=== PATIENT | female | born 1975 | race Caucasian/White ===

== ENCOUNTER 2017-05-20 16:48 | Emergency (ER) | payer SELFPAY ==
[~2017-05-20 16:48] MED LIST: ACE3 PO; ADV250/50 INH; ALB0.5 INH; CIT20 PO; COM PO; ESCI20TA38 PO; IBU800 PO; LEVO50TA80 PO; LIO25 PO; MET2 PO; METO-259 PO; MULT-820 PO; PER PO; SUMA100T32 PO; ZOLP-350 PO
[2017-05-20] MEDS ORDERED: RIZA10TA PO (16:58)
[2017-05-20] MEDS ORDERED: PARO-243 PO (16:58)
--- NOTE | 2017-05-20 16:58 | ER Report ---
History and Physical Time Seen By MD: 16:57 Hx. of Stated Complaint: Patient complains of chest pain for 2 days and worsened when her left arm went numb today HPI/ROS CHIEF COMPLAINT: Chest pain HISTORY OF PRESENT ILLNESS: 41-year-old female patient presents to emergency room with complaint of chest pain. Patient states this been going on for the last 2 days. She states it started while she was doing pushups. She states that the pain worsened today which caused her to become concerned. Patient states that she had some numbness and tingling to her left arm. She states that also made her more nervous. She denies having any nausea, vomiting or diarrhea. Patient states she is not taking any medication for this for last few days. She states she's had a history of ST prolongation. REVIEW OF SYSTEMS: Respiratory: No cough, no dyspnea. Cardiovascular: As noted above Gastrointestinal: No vomiting, no abdominal pain. Musculoskeletal: No back pain. Allergies: Coded Allergies: No Known Drug Allergies (Verified , 05/20/17) Uncoded Allergies: ENVIRONMENTAL ALLERGIES (Allergy, Intermediate, 03/03/09) Home Meds Active Scripts Cyclobenzaprine Hcl (CYCLOBENZAPRINE HCL) 10 Mg Tablet, 5-10 MG PO TID Y for MUSCLE SPASMS, #9 TAB Prov:AMANDA JACKSON [facility] 05/20/17 Hydrocodone Bit/Acetaminophen (NORCO 5-325 TABLET) 1 Each Tablet, 1 EACH PO Q4- 6H Y for PAIN, #12 TAB Prov:AMANDA JACKSON [facility] 05/20/17 Ketorolac Tromethamine (KETOROLAC TROMETHAMINE) 10 Mg Tab, 10 MG PO Q6H, #20 TAB Prov:AMANDA JACKSON [facility] 05/20/17 Reported Medications Rizatriptan Benzoate (MAXALT) 10 Mg Tablet, 10 MG PO 05/20/17 Paroxetine Hcl (PAXIL) 20 Mg Tablet, 5 MG PO QDAY, TAB 05/20/17 Multivitamins (Multivitamin) 1 Tab Tablet, 1 TAB PO DAILY, 0 Refills 03/03/09 Discontinued Reported Medications Oxycodone/Acetaminophen (OXYCODONE/ACETAMINOPHEN 5MG/325 MG) 5 Mg/325 Mg Tab, 1 - 2 TAB PO Q4-6H Y, #30 0 Refills 03/05/09 Zolpidem Tartrate (Ambien) 10 Mg Tablet, 10 MG PO QHS PRN, 0 Refills 03/03/09 Liothyronine Sodium (Cytomel) 25 Mcg Tab, 25 MCG PO QDAY, 0 Refills 03/03/09 Levothyroxine Sodium (Levothyroxine Sodium) 50 Mcg Tablet, 50 MCG PO DAILY, 0 Refills 03/03/09 Sumatriptan Succinate (Imitrex) 100 Mg Tablet, 100 MG PO PRN, 0 Refills 03/03/09 Citalopram Hydrobromide (Celexa) 20 Mg Tab, 40 MG PO QDAY, 0 Refills 03/03/09 Lamivudine/Zidovudine (Combivir) 1 Ea Tab, 1 EA PO BID, 0 Refills 02/17/09 Albuterol Sulfate (Albuterol Inh Conc) 2.5 Mg/0.5 Ml Nebu, 0 INH PRN, 0 Refills DILUTE BEFORE USING 02/17/09 Salmeterol Xinaf/Fluticasone (Advair 250/50 Diskus) 250 Mcg/50 Mcg Inh, 1 - 2 PUFF INH BID, 0 Refills 1 PUFF 03/03/09 Past Medical/Surgical History Patient has a past medical history of migraines, asthma, pneumonia, inguinal hernia, alcohol use. Patient has a surgical history of D&C. Reviewed Nurses Notes: Yes Hx Substance Use Disorder: No Hx Alcohol Use: Yes (socially) Constitutional Vital Sign - Last 24 Hours 05/20/17 05/20/17 05/20/17 05/20/17 16:48 16:51 16:51 17:00 Temp 97.8 Pulse ??? 87 Resp 16 B/P (MAP) 163/81 163/81 (108) 135/106 (116) Pulse Ox 93 O2 Delivery Room Air 05/20/17 05/20/17 05/20/17 05/20/17 17:03 17:18 17:30 17:33 Pulse 93 84 ??? Resp 22 12 B/P (MAP) 136/97 (110) Pulse Ox 95 97 05/20/17 05/20/17 17:48 18:03 Pulse 71 ??? Resp 18 Pulse Ox 90 Intake and Output 05/20/17 05/20/17 05/21/17 15:00 23:00 07:00 Intake Total 700 ml Balance 700 ml Physical Exam General Appearance: The patient is alert, has no immediate need for airway protection and no current signs of toxicity. Patient appears anxious ENT: Tympanic membranes are pearly-andersen, auditory canals are patent, mucous membranes are moist. Respiratory: Chest is tender along the left sternal border, lungs are clear to auscultation. Cardiac: regular rate and rhythm Gastrointestinal: Abdomen is soft and non tender, no masses, bowel sounds normal. Musculoskeletal: Neck: Neck is supple and non tender. Extremities have full range of motion and are non tender. Skin: No rashes or lesions. DIFFERENTIAL DIAGNOSIS: After history and physical exam differential diagnosis was considered for chest pain including but not limited to myocardial ischemia, pericarditis pulmonary embolus, chest wall pain, pleural inflammation and pulmonary infectious causes. Medical Decision Making Data Points Result Diagram: 05/20/177 05/20/177 Laboratory Hematology Test 05/20/17 16:57 Red Blood Count 4.41 M/uL (4.17-5.56) Mean Corpuscular Volume 97.0 fL (80.0-96.0) Mean Corpuscular Hemoglobin 34.7 pg (26.0-33.0) Mean Corpuscular Hemoglobin Concent 35.8 g/dL (32.0-36.0) Red Cell Distribution Width 13.5 % (11.5-14.5) Mean Platelet Volume 7.4 fL (7.2-11.1) Neutrophils (%) (Auto) 70.0 % (39.4-72.5) Lymphocytes (%) (Auto) 20.2 % (17.6-49.6) Monocytes (%) (Auto) 7.3 % (4.1-12.4) Eosinophils (%) (Auto) 1.4 % (0.4-6.7) Basophils (%) (Auto) 1.1 % (0.3-1.4) Nucleated RBC Relative Count (auto) 0.0 /100WBC Neutrophils # (Auto) 5.0 K/uL (2.0-7.4) Lymphocytes # (Auto) 1.4 K/uL (1.3-3.6) Monocytes # (Auto) 0.5 K/uL (0.3-1.0) Eosinophils # (Auto) 0.1 K/uL (0.0-0.5) Basophils # (Auto) 0.1 K/uL (0.0-0.1) Nucleated RBC Absolute Count (auto) 0.00 K/uL Sodium Level 143 mmol/L (137-145) Potassium Level 3.3 mmol/L (3.5-5.0) Chloride Level 103 mmol/L (98-107) Carbon Dioxide Level 24 mmol/L (22-31) Blood Urea Nitrogen 7 mg/dl (7-18) Creatinine 0.70 mg/dl (0.52-1.04) Glomerular Filtration Rate Calc > 60.0 Random Glucose 90 mg/dl (75-110) Calcium Level 8.9 mg/dl (8.4-10.2) Total Bilirubin 0.6 mg/dl (0.2-1.3) Aspartate Amino Transf (AST/SGOT) 43 U/L (0-35) Alanine Aminotransferase (ALT/SGPT) 44 U/L (0-56) Alkaline Phosphatase 74 U/L (0-126) Troponin I < 0.012 ng/ml Total Protein 6.8 gm/dl (6.3-8.2) Albumin 4.1 g/dl (3.5-5.0) Chemistry Test 05/20/17 16:57 White Blood Count 7.1 k/uL (4.5-11.0) Red Blood Count 4.41 M/uL (4.17-5.56) Hemoglobin 15.3 g/dL (12.0-16.0) Hematocrit 42.8 % (34.0-47.0) Mean Corpuscular Volume 97.0 fL (80.0-96.0) Mean Corpuscular Hemoglobin 34.7 pg (26.0-33.0) Mean Corpuscular Hemoglobin Concent 35.8 g/dL (32.0-36.0) Red Cell Distribution Width 13.5 % (11.5-14.5) Platelet Count 244 K/uL (150-450) Mean Platelet Volume 7.4 fL (7.2-11.1) Neutrophils (%) (Auto) 70.0 % (39.4-72.5) Lymphocytes (%) (Auto) 20.2 % (17.6-49.6) Monocytes (%) (Auto) 7.3 % (4.1-12.4) Eosinophils (%) (Auto) 1.4 % (0.4-6.7) Basophils (%) (Auto) 1.1 % (0.3-1.4) Nucleated RBC Relative Count (auto) 0.0 /100WBC Neutrophils # (Auto) 5.0 K/uL (2.0-7.4) Lymphocytes # (Auto) 1.4 K/uL (1.3-3.6) Monocytes # (Auto) 0.5 K/uL (0.3-1.0) Eosinophils # (Auto) 0.1 K/uL (0.0-0.5) Basophils # (Auto) 0.1 K/uL (0.0-0.1) Nucleated RBC Absolute Count (auto) 0.00 K/uL Glomerular Filtration Rate Calc > 60.0 Calcium Level 8.9 mg/dl (8.4-10.2) Total Bilirubin 0.6 mg/dl (0.2-1.3) Aspartate Amino Transf (AST/SGOT) 43 U/L (0-35) Alanine Aminotransferase (ALT/SGPT) 44 U/L (0-56) Alkaline Phosphatase 74 U/L (0-126) Troponin I < 0.012 ng/ml Total Protein 6.8 gm/dl (6.3-8.2) Albumin 4.1 g/dl (3.5-5.0) EKG/Imaging EKG Interpretation 12 lead EKG: Rhythm: normal sinus rhythm with a ventricular rate of 91 bpm [place]: normal QRS: normal ST segments: normal Imaging Examination: CHEST PA AND LAT Comparison: None. History: Chest pain. Findings: Cardiac and hilar contour size is within normal limits. No consolidation, nodule, or peribronchial inflammation. No pneumothorax, edema, or effusion. Visualized bowel gas pattern is unremarkable. Osseous structures are intact. IMPRESSION: Negative chest. Report Dictated By: German Maurer MD at 05/20/2017 5:40 PM Report E-Signed By: German Maurer MD at 05/20/2017 5:42 PM ED Course/Re-evaluation ED Course Patient was admitted to exam room, history and physical were obtained. Differential diagnoses were considered. On examination patient has tenderness to the ribs adjacent to the left sternum. A CBC, CMP, troponin, EKG, chest x- ray were done. Lab results were unremarkable, the troponin was negative. EKG showed a normal sinus rhythm, chest x-ray was negative. I discussed the findings with the patient and her mother. I believe that we are looking at a muscle strain secondary to doing pushups. Patient received a dose of morphine originally here in the emergency room, she didn't have much improvement in her pain. We then gave her 30 mg of Toradol and patient states she did have some improvement. Due to the significant amounts of discomfort go ahead and give her limited supply of hydrocodone. We will also treat her with Toradol 10 mg 4 times a day for the next 5 days. I discussed this with the patient and her mother they verbalized understanding and agreement with plan. The mother did ask if possible the patient had a blood clot. I discussed that with her vital signs (blood pressure 136/97, heart rate 71) that I did not believe that a pulmonary embolism would be likely. Decision to Disposition Date: May 20, 2017 Decision to Disposition Time: 17:58 Depart Departure Latest Vital Signs Vital Signs Date Time Temp Pulse Resp B/P (MAP) Pulse Ox O2 Delivery O2 Flow Rate FiO2 05/20/17 18:03 ??? 18 05/20/17 17:48 90 05/20/17 17:30 136/97 (110) 05/20/17 16:51 97.8 Room Air Impression: Primary Impression: Chest pain Condition: Improved Disposition: HOME OR SELF-CARE New Scripts Cyclobenzaprine Hcl (CYCLOBENZAPRINE HCL) 10 Mg Tablet 5-10 MG PO TID Y for MUSCLE SPASMS, #9 TAB Prov: AMANDA JACKSON 05/20/17 Hydrocodone Bit/Acetaminophen (NORCO 5-325 TABLET) 1 Each Tablet 1 EACH PO Q4-6H Y for PAIN, #12 TAB Prov: AMANDA JACKSON 05/20/17 Ketorolac Tromethamine (KETOROLAC TROMETHAMINE) 10 Mg Tab 10 MG PO Q6H, #20 TAB Prov: AMANDA JACKSON 05/20/17 Patient Instructions: Chest Pain (ED) Additional Instructions: Increase fluid intake. Get plenty of rest. Ice the ribs on the left side of the sternum. No Tylenol or Ibuprofen while taking the prescriptions. Limit activity by pain. Return to the ER if condition worsens. Follow up with your primary care provider in the next week. Problem Qualifiers Primary Impression: Chest pain Chest pain type: other chest pain Qualified Codes: R07.89 - Other chest pain AMANDA JACKSON May 20, 2017 16:58
[2017-05-20] MEDS ORDERED: NS(*) 0.9% 1000 ML BAG 1,000 ML IV ONE (17:03)
[2017-05-20] MEDS ORDERED: MORPHINE 2 MG/ML SYR IVP ONE (17:05)
[2017-05-20] MEDS ORDERED: ASPIRIN 81 MG CHEW PO ONE (17:05)
[2017-05-20 17:08] LABS: PLATELET COUNT, AUTOMATED 244 K/uL (150-450)
[2017-05-20 17:30] VITALS: BP 136/97
--- NOTE | 2017-05-20 17:45 | RADIOLOGY IMAGING REPORT ---
FACILITY: [facility] [place] PATIENT NAME: Juan Manuel Brand : 1975 MR: [id number] V: [id number] EXAM DATE: ORDERING PHYSICIAN: AMANDA JACKSON TECHNOLOGIST: Location: [facility] Patient: Juan Manuel Brand : 1975 Visit/Account:[id number] Date of Sevice: 05/20/2017 Examination: CHEST PA AND LAT Comparison: None. History: Chest pain. Findings: Cardiac and hilar contour size is within normal limits. No consolidation, nodule, or peribr onchial inflammation. No pneumothorax, edema, or effusion. Visualized bowel gas pattern is unremarkab le. Osseous structures are intact. IMPRESSION: Negative chest. Report Dictated By: German Maurer MD at 05/20/2017 5:40 PM Report E-Signed By: German Maurer MD at 05/20/2017 5:42 PM WSN:[id number]
[2017-05-20] MEDS ORDERED: HYDR-4309 PO (17:55)
[2017-05-20] MEDS ORDERED: KETOROLAC 30 MG/ML VIAL IVP ONE (17:55)
[2017-05-20] MEDS ORDERED: KET10 PO (17:55)
--- NOTE | 2017-05-20 18:02 | EKG ---
FACILITY: [facility] PATIENT NAME: MACARIO GARCIA : [id number] MR: [id number] V: [id number] EXAM DATE: ORDERING PHYSICIAN: AMANDA JACKSON TECHNOLOGIST: ROSEMARIE Test Reason : ABD PAIN Blood Pressure : / mmHG Vent. Rate : 091 BPM Atrial Rate : 091 BPM P-R Int : 130 ms QRS Dur : 088 ms QT Int : 422 ms P-R-T Axes : 059 073 062 degrees QTc Int : 519 ms Sinus rhythm No acute appearing ST-T findings Prolonged QT Abnormal ECG No previous ECGs available Confirmed by DEVIN MAGANA ([id number]) on 05/20/2017 6:44:57 PM Referred By: MANUEL Confirmed By:DEVIN MAGANA
[2017-05-20] MEDS ORDERED: KETOROLAC TROM 10 MG TAB TH PO ONE (18:20)
[2017-05-20] MEDS ORDERED: ACET/HYDROC 5/325MG TH ER ONLY 2 TAB/BOTTLE PO ONE (18:20)
[2017-05-20] MEDS ORDERED: CYCLOBENZAPRINE HCL 10 MG TH PO ONE (18:35)
[2017-05-20] MEDS ORDERED: CYCL10TA29 PO (18:36)
== END 2017-05-20 18:42 | disposition home or self-care (01) ==
LOC: ER 17:02
DX: R07.89 Other chest pain (principal)
CPT/HCPCS: 71046; 84484; 85025; 93005; 96361; 96374; 96375; 99284; J1885; J2270; J7030; 82040; 82247; 82310; 82374; 82435; 82565; 82947; 84075; 84132; 84155; 84295; 84450; 84460; 84520

== ENCOUNTER 2017-09-17 12:18 | Emergency (ER) | payer SELFPAY ==
[~2017-09-17 12:18] MED LIST changes: +CYCL10TA29 PO; +HYDR-4309 PO; +KET10 PO; +PARO-243 PO; +RIZA10TA PO
[2017-09-17] MEDS ORDERED: AMPH20TA18 PO (12:30)
--- NOTE | 2017-09-17 12:32 | ER Report ---
History and Physical Time Seen By MD: 12:28 Hx. of Stated Complaint: PATIENT IS REPORTING BI-LATERAL FLANK PAIN SINCE YESTERDAY HPI/ROS Source of History: The client Chief Concern: low back pain History of Present Illnesses: 41-year-old patient reports starting to feel poorly Sunday in which she has lower back pain, chills, night sweats, an occipital headache, constipation and nausea. States, she typically does not "throw-up" and has not had any emesis. Reports having a small bowel movement Sunday Morning. States she has had a tubal ligation but no other abdominal surgeries. Reports being sexually active and not using condoms 100% of the time. Reports feeling as if she has not voided completely with urination. Has had UTIs in the past, reporting her last UTI was in 2011. The lower back pain is bilateral, constant, and made worse when she takes a deep breath. The symptoms have been unrelieved with ibuprofen. Her last dose of ibuprofen was last night at 20:00. No other treatments tried. Constitutional: Reports malaise, chills, and night sweats. HEENT: Reports headache. No vision changes. No sinus congestion. No sore throat , or cough. Cardiovascular: Denies chest pain, palpitations, or diaphoresis. Respiratory: Denies cough, shortness of breath, or wheezing. Gastrointestinal System: Reports nausea. Denies vomiting, hematochezia, or black stools. Genitourinary: Reports lower back pain, denies hematuria, reports painful voiding and urinary hesitancy. Musculoskeletal: Denies muscular pain, no joint pain. Allergic/Immunologic: Denies joint pain or weakness. Allergies: Coded Allergies: No Known Drug Allergies (Verified , 05/20/17) Uncoded Allergies: ENVIRONMENTAL ALLERGIES (Allergy, Intermediate, 03/03/09) Home Meds Active Scripts Ciprofloxacin Hcl (CIPROFLOXACIN HCL) 500 Mg Tablet, 500 MG PO Q12H for 7 Days, #14 TAB Prov:AMANDA JACKSON 09/17/17 Reported Medications Amphet Asp/Amphet/D-Amphet (ADDERALL 20 MG TABLET) 20 Mg Tablet, 20 MG PO BID 09/17/17 Discontinued Reported Medications Rizatriptan Benzoate (MAXALT) 10 Mg Tablet, 10 MG PO 05/20/17 Paroxetine Hcl (PAXIL) 20 Mg Tablet, 5 MG PO QDAY, TAB 3/25/18 Multivitamins (Multivitamin) 1 Tab Tablet, 1 TAB PO DAILY, 0 Refills 03/03/09 Discontinued Scripts Cyclobenzaprine Hcl (CYCLOBENZAPRINE HCL) 10 Mg Tablet, 5-10 MG PO TID Y for MUSCLE SPASMS, #9 TAB Prov:AMANDA JACKSON [facility] 05/20/17 Hydrocodone Bit/Acetaminophen (NORCO 5-325 TABLET) 1 Each Tablet, 1 EACH PO Q4- 6H Y for PAIN, #12 TAB Prov:AMANDA JACKSON [facility] 05/20/17 Ketorolac Tromethamine (KETOROLAC TROMETHAMINE) 10 Mg Tab, 10 MG PO Q6H, #20 TAB Prov:AMANDA JACKSON [facility] 05/20/17 Past Medical/Surgical History Migraines, asthma, pneumonia, left inguinal hernia, Reviewed Nurses Notes: Yes Hx Substance Use Disorder: No Hx Alcohol Use: Yes (socially) Constitutional Vital Sign - Last 24 Hours 09/17/17 09/17/17 09/17/17 09/17/17 12:22 12:24 12:30 12:48 Temp 99.8 Pulse 113 106 Resp 20 B/P (MAP) 153/109 153/109 (124) 143/94 (110) Pulse Ox 92 O2 Delivery Room Air 09/17/17 09/17/17 09/17/17 09/17/17 13:00 13:18 13:30 13:48 Pulse 98 91 B/P (MAP) 122/87 (99) 131/88 (102) Pulse Ox 94 92 09/17/17 13:59 B/P (MAP) 133/85 (101) Physical Exam Eyes. Non-injected. No exudates. PERRLA. Corneas grossly intact. Extra ocular movements intact, peripheral vision grossly intact. ENMT. Ears- symmetrical auricles with smooth skin; auricles aligned with the outer canthus of eye. TMs clear. Nose - symmetric, straight, and uniform in color. No nasal flaring. Mouth - mucosa pink and moist. Throat no hoarseness , uvula midline. Neck. Neck supple, erect, trachea midline, no masses. Thyroid no enlargement or nodules, non-tender. Lymph nodes- cervical chain, pre-and post-auricular, occipital, mandibular, and submental lymph nodes non-tender and non-palpable. BL parotid glands non-tender and non-palpable. Cardiovascular. 2+ radial BL equal. PMI - left midclavicular at the 5th ICS. Aortic, pulmonic, tricuspid, and mitral areas - clear S1/S2; no murmur, no S3, or S4. Respiratory. Respiratory Excursion BL equal and symmetrical; no presence of lag; quiet, rhythmic and effortless. No retractions. BL clear and equal. GI: abdomen round, non-distended, BS normoactive x 4 quadrants, tender, no guarding, no CVA tenderness. : normal external genitalia, normal vaginal mucosa, cervix pink, vaginal vault with milky non-odorous discharged. Pelvic exam was done with a surveillance inspector. Lymphatic: Cervical chain, pre and post auricular, occipital, mandibular, and submental lymph nodes non tender and non-palpable. Musculoskeletal: Muscles symmetric BL, active motion of all extremities. Neurologic: Alert. Language clear. Cranial nerves grossly intact. Sensation grossly intact. Differential diagnoses: UTI, pyelonephritis, STI, kidney stones Medical Decision Making Data Points Result Diagram: 09/17/17 1240 09/17/17 1240 Laboratory Hematology Test 09/17/17 12:40 09/17/17 12:47 Red Blood Count 4.09 M/uL (4.17-5.56) Mean Corpuscular Volume 100.5 fL (80.0-96.0) Mean Corpuscular Hemoglobin 34.8 pg (26.0-33.0) Mean Corpuscular Hemoglobin Concent 34.7 g/dL (32.0-36.0) Red Cell Distribution Width 13.1 % (11.5-14.5) Mean Platelet Volume 8.1 fL (7.2-11.1) Neutrophils (%) (Auto) 93.0 % (39.4-72.5) Lymphocytes (%) (Auto) 2.3 % (17.6-49.6) Monocytes (%) (Auto) 3.6 % (4.1-12.4) Eosinophils (%) (Auto) 0.3 % (0.4-6.7) Basophils (%) (Auto) 0.8 % (0.3-1.4) Nucleated RBC Relative Count (auto) 0.0 /100WBC Neutrophils # (Auto) 10.6 K/uL (2.0-7.4) Lymphocytes # (Auto) 0.3 K/uL (1.3-3.6) Monocytes # (Auto) 0.4 K/uL (0.3-1.0) Eosinophils # (Auto) 0.0 K/uL (0.0-0.5) Basophils # (Auto) 0.1 K/uL (0.0-0.1) Nucleated RBC Absolute Count (auto) 0.00 K/uL Sodium Level 133 mmol/L (137-145) Potassium Level 3.7 mmol/L (3.5-5.0) Chloride Level 100 mmol/L (98-107) Carbon Dioxide Level 25 mmol/L (22-31) Blood Urea Nitrogen 9 mg/dl (7-18) Creatinine 0.70 mg/dl (0.52-1.04) Glomerular Filtration Rate Calc > 60.0 Random Glucose 118 mg/dl (75-110) Calcium Level 8.7 mg/dl (8.4-10.2) Total Bilirubin 1.5 mg/dl (0.2-1.3) Aspartate Amino Transf (AST/SGOT) 86 U/L (0-35) Alanine Aminotransferase (ALT/SGPT) 78 U/L (0-56) Alkaline Phosphatase 113 U/L (0-126) Total Protein 6.7 g/dl (6.3-8.2) Albumin 4.1 g/dl (3.5-5.0) Human Chorionic Gonadotropin, Qual Negative (NEGATIVE) Urine Color Yellow Urine Clarity Cloudy Urine pH 7.0 pH (4.8-9.5) Urine Specific [place] 1.011 Urine Protein 30 mg/dL (NEGATIVE) Urine Glucose (UA) Negative mg/dL (NEGATIVE) Urine Ketones Negative mg/dL (NEGATIVE) Urine Blood Small (NEGATIVE) Urine Nitrite Positive (NEGATIVE) Urine Bilirubin Negative (NEGATIVE) Urine Urobilinogen 4.0 mg/dL (0.2-1.9) Urine Leukocyte Esterase Moderate (NEGATIVE) Urine RBC 3 /HPF (0-2/HPF) Urine WBC 140 /HPF (0-5/HPF) Urine WBC Clumps Few /HPF Urine Squamous Epithelial Cells Many /LPF (</=FEW) Urine Transitional Epithelial Cells Many /LPF (NONE-FEW) Urine Bacteria Moderate /HPF (NONE-FEW) Urine Mucus None /HPF (NONE-FEW) Chemistry Test 09/17/17 12:40 09/17/17 12:47 White Blood Count 11.4 k/uL (4.5-11.0) Red Blood Count 4.09 M/uL (4.17-5.56) Hemoglobin 14.2 g/dL (12.0-16.0) Hematocrit 41.0 % (34.0-47.0) Mean Corpuscular Volume 100.5 fL (80.0-96.0) Mean Corpuscular Hemoglobin 34.8 pg (26.0-33.0) Mean Corpuscular Hemoglobin Concent 34.7 g/dL (32.0-36.0) Red Cell Distribution Width 13.1 % (11.5-14.5) Platelet Count 217 K/uL (150-450) Mean Platelet Volume 8.1 fL (7.2-11.1) Neutrophils (%) (Auto) 93.0 % (39.4-72.5) Lymphocytes (%) (Auto) 2.3 % (17.6-49.6) Monocytes (%) (Auto) 3.6 % (4.1-12.4) Eosinophils (%) (Auto) 0.3 % (0.4-6.7) Basophils (%) (Auto) 0.8 % (0.3-1.4) Nucleated RBC Relative Count (auto) 0.0 /100WBC Neutrophils # (Auto) 10.6 K/uL (2.0-7.4) Lymphocytes # (Auto) 0.3 K/uL (1.3-3.6) Monocytes # (Auto) 0.4 K/uL (0.3-1.0) Eosinophils # (Auto) 0.0 K/uL (0.0-0.5) Basophils # (Auto) 0.1 K/uL (0.0-0.1) Nucleated RBC Absolute Count (auto) 0.00 K/uL Glomerular Filtration Rate Calc > 60.0 Calcium Level 8.7 mg/dl (8.4-10.2) Total Bilirubin 1.5 mg/dl (0.2-1.3) Aspartate Amino Transf (AST/SGOT) 86 U/L (0-35) Alanine Aminotransferase (ALT/SGPT) 78 U/L (0-56) Alkaline Phosphatase 113 U/L (0-126) Total Protein 6.7 g/dl (6.3-8.2) Albumin 4.1 g/dl (3.5-5.0) Human Chorionic Gonadotropin, Qual Negative (NEGATIVE) Urine Color Yellow Urine Clarity Cloudy Urine pH 7.0 pH (4.8-9.5) Urine Specific [place] 1.011 Urine Protein 30 mg/dL (NEGATIVE) Urine Glucose (UA) Negative mg/dL (NEGATIVE) Urine Ketones Negative mg/dL (NEGATIVE) Urine Blood Small (NEGATIVE) Urine Nitrite Positive (NEGATIVE) Urine Bilirubin Negative (NEGATIVE) Urine Urobilinogen 4.0 mg/dL (0.2-1.9) Urine Leukocyte Esterase Moderate (NEGATIVE) Urine RBC 3 /HPF (0-2/HPF) Urine WBC 140 /HPF (0-5/HPF) Urine WBC Clumps Few /HPF Urine Squamous Epithelial Cells Many /LPF (</=FEW) Urine Transitional Epithelial Cells Many /LPF (NONE-FEW) Urine Bacteria Moderate /HPF (NONE-FEW) Urine Mucus None /HPF (NONE-FEW) Urinalysis Test 09/17/17 12:47 Urine Color Yellow Urine Clarity Cloudy Urine pH 7.0 pH (4.8-9.5) Urine Specific [place] 1.011 Urine Protein 30 mg/dL (NEGATIVE) Urine Glucose (UA) Negative mg/dL (NEGATIVE) Urine Ketones Negative mg/dL (NEGATIVE) Urine Blood Small (NEGATIVE) Urine Nitrite Positive (NEGATIVE) Urine Bilirubin Negative (NEGATIVE) Urine Urobilinogen 4.0 mg/dL (0.2-1.9) Urine Leukocyte Esterase Moderate (NEGATIVE) Urine RBC 3 /HPF (0-2/HPF) Urine WBC 140 /HPF (0-5/HPF) Urine WBC Clumps Few /HPF Urine Squamous Epithelial Cells Many /LPF (</=FEW) Urine Transitional Epithelial Cells Many /LPF (NONE-FEW) Urine Bacteria Moderate /HPF (NONE-FEW) Urine Mucus None /HPF (NONE-FEW) ED Course/Re-evaluation ED Course 41-year-old patient presents to the Emergency Department with bilaterally lower back pain that radiates to her abdomen and includes urinary hesitancy. Physical Examination obtained. Differential diagnoses considered and shared with the patient. CBC, CMP, HcG, UA, gonorrhea and chlamydia cultures obtained. The UA, elevated WBC, alongside patient history and physical examination indicates UTI that has progressed to pyelonephritis. The patient will be sent home on Cipro and encouraged to return to the emergency department if her condition worsens or if she does not see improvement in symptoms. The patient states agreement and has no further questions at this time. The urine sample will be sent for culture to ensure effective antibiotic treatment. Decision to Disposition Date: Sep 17, 2017 Decision to Disposition Time: 14:00 Depart Departure Latest Vital Signs Vital Signs Date Time Temp Pulse Resp B/P (MAP) Pulse Ox O2 Delivery O2 Flow Rate FiO2 09/17/17 13:59 133/85 (101) 09/17/17 13:48 91 92 09/17/17 12:22 99.8 20 Room Air Impression: Primary Impression: Pyelonephritis Condition: Condition Unchanged Disposition: HOME OR SELF-CARE New Scripts Ciprofloxacin Hcl (CIPROFLOXACIN HCL) 500 Mg Tablet 500 MG PO Q12H for 7 Days, #14 TAB Prov: AMANDA JACKSON 09/17/17 Patient Instructions: Urinary Tract Infection in Women (ED) Additional Instructions: Take antibiotic once in the morning and once at night. Take the entire course of antibiotics 7 days. Return to the emergency department if your condition worsens. Use ibuprofen and Tylenol as needed for discomfort. Follow up with your primary care provider if you do not see improvement in you symptoms within three days. We will call you if the urine culture indicates a need to change your antibiotic. Continue to drink plenty of water. AMANDA JACKSON Sep 17, 2017 12:32
[2017-09-17] MEDS ORDERED: ACETAMINOPHEN 325 MG TAB PO ONE (13:00)
[2017-09-17 13:02] LABS: PLATELET COUNT, AUTOMATED 217 K/uL (150-450)
[2017-09-17] MEDS ORDERED: CIPR-214 PO (13:50)
[2017-09-17 13:59] VITALS: BP 133/85
== END 2017-09-17 14:00 | disposition home or self-care (01) ==
LOC: ER 12:21
DX: N12 Tubulo-interstitial nephritis, not specified as acute or chronic (principal)
CPT/HCPCS: 81001; 82040; 82247; 82310; 82374; 82435; 82565; 82947; 84075; 84132; 84155; 84295; 84450; 84460; 84520; 84703; 85025; 87077; 87088; 87186; 87491; 87591; 99283